=== PATIENT | female | born 1985 | race Two or more races ===

== ENCOUNTER 2016-09-07 11:44 | Emergency (ER) | payer SELFPAY ==
[~2016-09-07] VITALS: Ht 165.1 cm; Wt 63.4 kg
[2016-09-07 14:11] LABS: HEMATOCRIT 34.7 % (36.0-46.0); MCH 26.4 PG (29.0-34.0); MCHC 33.4 G/DL (30.0-36.0); MCV 78.9 FL (83-99); MEAN PLAT.VOLUME 10.3 uM^3 (9.5-12.4); PLATELET COUNT 242 K/uL (156-360); RBC DIS.WIDTH-CV 14.8 % (11.8-14.6); RBC DIS.WIDTH-SD 40.8 % (39-53); WHITE BLOOD COUNT 9.8 K/uL (4.1-10.2)
[2016-09-07 14:26] LABS: CHLORIDE 104 mEq/L (99-109); POTASSIUM 3.7 mEq/L (3.7-5.4); SODIUM 139 mEq/L (136-147)
[2016-09-07 14:27] LABS: GLUCOSE 82 mg/dL (70-99)
[2016-09-07 14:29] LABS: ANION GAP 9 MEQ/L (2-14)
[2016-09-07 14:31] LABS: GFR ESTIMATE (CALCULATED) > 59 mL/min/
[2016-09-07 14:32] LABS: UREA NITROGEN (BUN) 11 mg/dL (9-23)
[2016-09-07] MEDS ORDERED: FIORICET,ESG1 TABLET PO (14:56)
[2016-09-07 15:33] VITALS: BP 135/91
== END 2016-09-07 15:33 | disposition home or self-care (01) ==
LOC: EME 11:44
PROVIDERS: Nurse Practitioner Family
DX: R59.1 Generalized enlarged lymph nodes (principal); R51 Headache; Z85.41 Personal history of malignant neoplasm of cervix uteri; F17.200 Nicotine dependence, unspecified, uncomplicated
CPT/HCPCS: 70450; 80048; 81003; 85027; 99281; 99284

== ENCOUNTER 2016-12-05 16:00 | Emergency (ER) | payer OTHER ==
[~2016-12-05] VITALS: Ht 165.1 cm; Wt 65.3 kg
[~2016-12-05 16:00] MED LIST: FIORICET,ESG1 TABLET PO
[2016-12-05] MEDS ORDERED: ATARAX,VISTARIL25 MG PO (16:43)
[2016-12-05] MEDS ORDERED: ZOLOFT25 MG PO (16:43)
[2016-12-05 17:10] VITALS: BP 142/77
== END 2016-12-05 17:11 | disposition home or self-care (01) ==
LOC: EME 16:00
DX: F41.9 Anxiety disorder, unspecified (principal); F32.9 Major depressive disorder, single episode, unspecified; Z87.891 Personal history of nicotine dependence
CPT/HCPCS: 99281; 99283

== ENCOUNTER 2016-12-31 14:53 | Emergency (ER) | payer OTHER ==
[~2016-12-31] VITALS: Ht 165.1 cm; Wt 65.5 kg
[~2016-12-31 14:53] MED LIST changes: +ATARAX,VISTARIL25 MG PO; +ZOLOFT25 MG PO
[2016-12-31 14:58] VITALS: BP 125/68
[2016-12-31] MEDS ORDERED: NORCO 5/3251 TABLET PO (15:45)
[2016-12-31] MEDS ORDERED: PEN-VEE K,VEET500 MG PO (15:45)
== END 2016-12-31 15:57 | disposition home or self-care (01) ==
LOC: EME 14:53
DX: K02.9 Dental caries, unspecified (principal); F17.200 Nicotine dependence, unspecified, uncomplicated
CPT/HCPCS: 99281; 99284

== ENCOUNTER 2017-01-03 20:05 | Emergency (ER) | payer OTHER ==
[~2017-01-03] VITALS: Ht 165.1 cm; Wt 65.5 kg
[~2017-01-03 20:05] MED LIST changes: +NORCO 5/3251 TABLET PO; +PEN-VEE K,VEET500 MG PO
[2017-01-03] MEDS ORDERED: AUGMENTIN875 MG PO (22:10)
[2017-01-03] MEDS ORDERED: PERCOCET 5/31 TABLET PO (22:21)
[2017-01-03 22:28] VITALS: BP 125/74
== END 2017-01-03 22:29 | disposition home or self-care (01) ==
LOC: EME 20:05
PROC: 0C95XZZ Drainage of Upper Gingiva, External Approach (ICD-10-PCS; principal; 2017-01-03)
DX: K04.7 Periapical abscess without sinus (principal); R11.2 Nausea with vomiting, unspecified; F17.200 Nicotine dependence, unspecified, uncomplicated
CPT/HCPCS: 99281; 99284; S0020

== ENCOUNTER 2017-01-22 19:54 | Inpatient (IN) | payer OTHER ==
[~2017-01-22] VITALS: Ht 165.1 cm; Wt 68.0 kg
[~2017-01-22 19:54] MED LIST changes: +AUGMENTIN875 MG PO; +PERCOCET 5/31 TABLET PO
[2017-01-22 21:21] LABS: EOSINOPHIL (%) 0.3 % (0-5); EOSINOPHIL COUNT 0.1 K/uL (0-0.3); HEMATOCRIT 33.6 % (36.0-46.0); IMMATURE GRANULOCYTE COUNT 0.2 K/uL; INSTRUMENT ABS NEUTROPHIL CT 15.7 K/uL; LYMPHOCYTE COUNT 1.6 K/uL (1.0-2.8); MCH 26.3 PG (29.0-34.0); MCHC 32.4 G/DL (30.0-36.0); MEAN PLAT.VOLUME 10.3 uM^3 (9.5-12.4); MONOCYTE (%) 7.5 % (3-12); MONOCYTE COUNT 1.4 K/uL (0-0.8); NEUTROPHIL (%) 82.7 % (45-76); NEUTROPHIL COUNT 15.7 K/uL (1.8-6.4); PLATELET COUNT 203 K/uL (156-360); RBC DIS.WIDTH-SD 41.1 % (39-53); RED BLOOD COUNT 4.15 M/uL (3.80-5.20)
[2017-01-22 21:32] LABS: CHLORIDE 102 mEq/L (99-109); POTASSIUM 3.7 mEq/L (3.7-5.4); SODIUM 134 mEq/L (136-147)
[2017-01-22 21:34] LABS: GLUCOSE 101 mg/dL (70-99)
[2017-01-22 21:35] LABS: ANION GAP 7 MEQ/L (2-14)
[2017-01-22 21:38] LABS: GFR ESTIMATE (CALCULATED) 55 mL/min/
[2017-01-22 21:39] LABS: UREA NITROGEN (BUN) 11 mg/dL (9-23)
[2017-01-22 22:45] LABS: ADD MIUA? YES; BILIRUBIN NEGATIVE; BLOOD MODERATE; COLOR YELLOW ((YELLOW)); GLUCOSE (STRIP) NEGATIVE; KETONES NEGATIVE; LEUKOCYTES LARGE; NITRITE NEGATIVE; PROTEIN (STRIP) 30; SPECIFIC GRAVITY 1.006 (1.000-1.030); UROBILINOGEN 0.2 MG/DL (0.2-1.0)
[2017-01-22 23:13] LABS: BACTERIA 1+ /HPF; CASTS NONE SEEN /LPF; CRYSTALS NONE SEEN; EPITHELIAL CELLS 2+ /HPF; MUCUS RARE /LPF; UCUL ADDED? YES; WHITE BLOOD CELLS TNTC /HPF (0-5)
[2017-01-23 04:35] VITALS: BP 116/58
[2017-01-23 07:13] LABS: HEMATOCRIT 35.6 % (36.0-46.0); MCH 26.1 PG (29.0-34.0); MCV 81.5 FL (83-99); MEAN PLAT.VOLUME 10.3 uM^3 (9.5-12.4); PLATELET COUNT 188 K/uL (156-360); RBC DIS.WIDTH-CV 13.8 % (11.8-14.6); RBC DIS.WIDTH-SD 41.1 % (39-53); RED BLOOD COUNT 4.37 M/uL (3.80-5.20); WHITE BLOOD COUNT 19.8 K/uL (4.1-10.2)
[2017-01-23 07:20] VITALS: BP 104/54
[2017-01-23 07:46] LABS: ANION GAP 8 MEQ/L (2-14); CHLORIDE 108 MEQ/L (99-109); GFR ESTIMATE (CALCULATED) > 59 mL/min/; GLUCOSE 106 mg/dL (70-99); POTASSIUM 4.3 MEQ/L (3.7-5.4); SAMPLE HEMOLYSIS CHECK 0; SAMPLE ICTERIC CHECK 0; SAMPLE LIPEMIA CHECK 0; SODIUM 137 MEQ/L (136-147); UREA NITROGEN (BUN) 8 mg/dL (9-23)
[2017-01-23 08:20] LABS: ABS NEUTROPHIL COUNT 18.1; BAND NEUTROPHILS 6.9 % (0-8.0); BASOPHILS 0.9 %; EOSINOPHIL ABS CT 0; INSTRUMENT ABS NEUTROPHIL CT 16.7 K/uL; LYMPHOCYTES 6.9 % (15.0-45.0); METAMYELOCYTES 0.9 %; SEG.NEUTROPHILS 84.4 % (46.0-76.0); SMUDGE CELLS 3.5
[2017-01-23 09:41] LABS: INTERNAL CONTROL VALID? YES; MONOSPOT (MONONUCLEOSIS SEROL) NEGATIVE
[2017-01-23 11:20] VITALS: BP 89/52
[2017-01-23 15:50] VITALS: BP 110/59
[2017-01-23 19:31] VITALS: BP 121/78
[2017-01-23 23:43] VITALS: BP 103/58
[2017-01-24 07:05] VITALS: BP 110/63
[2017-01-24 08:22] LABS: HEMATOCRIT 32.9 % (36.0-46.0); MCH 25.8 PG (29.0-34.0); MCHC 32.5 G/DL (30.0-36.0); MCV 79.5 FL (83-99); MEAN PLAT.VOLUME 9.8 uM^3 (9.5-12.4); PLATELET COUNT 171 K/uL (156-360); RBC DIS.WIDTH-CV 13.8 % (11.8-14.6); RBC DIS.WIDTH-SD 40.5 % (39-53); RED BLOOD COUNT 4.14 M/uL (3.80-5.20); WHITE BLOOD COUNT 16.5 K/uL (4.1-10.2)
[2017-01-24 11:15] VITALS: BP 115/60
[2017-01-24 16:00] VITALS: BP 119/63
[2017-01-24 20:21] VITALS: BP 127/69
[2017-01-24 23:45] VITALS: BP 137/76
[2017-01-25 08:10] VITALS: BP 122/78
[2017-01-25 08:10] LABS: EOSINOPHIL (%) 0.3 % (0-5); IMMATURE GRANULOCYTE (%) 0.3 % (0.0-0.7); INSTRUMENT ABS NEUTROPHIL CT 7.9 K/uL; LYMPHOCYTE COUNT 1.6 K/uL (1.0-2.8); MCH 26.3 PG (29.0-34.0); MCHC 33.5 G/DL (30.0-36.0); MCV 78.5 FL (83-99); MEAN PLAT.VOLUME 11.1 uM^3 (9.5-12.4); MONOCYTE (%) 6.8 % (3-12); MONOCYTE COUNT 0.7 K/uL (0-0.8); NEUTROPHIL (%) 76.9 % (45-76); NEUTROPHIL COUNT 7.9 K/uL (1.8-6.4); PLATELET COUNT 200 K/uL (156-360); RBC DIS.WIDTH-CV 13.5 % (11.8-14.6); RBC DIS.WIDTH-SD 38.9 % (39-53); RED BLOOD COUNT 3.95 M/uL (3.80-5.20); WHITE BLOOD COUNT 10.3 K/uL (4.1-10.2)
[2017-01-25 08:33] LABS: ANION GAP 6 MEQ/L (2-14); CHLORIDE 106 MEQ/L (99-109); GFR ESTIMATE (CALCULATED) > 59 mL/min/; GLUCOSE 96 mg/dL (70-99); MAGNESIUM 1.9 mg/dl (1.3-2.7); POTASSIUM 3.8 MEQ/L (3.7-5.4); SAMPLE HEMOLYSIS CHECK 0; SAMPLE ICTERIC CHECK 0; SAMPLE LIPEMIA CHECK 0; SODIUM 139 MEQ/L (136-147); UREA NITROGEN (BUN) 10 mg/dL (9-23)
[2017-01-25 09:20] VITALS: BP 120/75
[2017-01-25 10:30] LABS: HIV INDEX 0.11; HIV-1/2 AB/AG COMBO Nonreactive
[2017-01-25] MEDS ORDERED: PERCOCET 5/31 TABLET PO (11:21)
[2017-01-25] MEDS ORDERED: BACTRIM,SEPT1 TABLET PO (11:21)
== END 2017-01-25 12:54 | disposition home or self-care (01) | DRG 872 ==
LOC: EME → EDBD 19:54 → EME 19:54 → EDOF 01-23 01:09 → 2EASTP 01-23 02:22
PROVIDERS: Emergency Medicine; Hospitalist; Internal Medicine
DX: A41.51 Sepsis due to Escherichia coli [E. coli] (principal); N10 Acute pyelonephritis; F41.9 Anxiety disorder, unspecified; B96.20 Unspecified Escherichia coli [E. coli] as the cause of diseases classified elsewhere; D50.0 Iron deficiency anemia secondary to blood loss (chronic); F17.210 Nicotine dependence, cigarettes, uncomplicated; K04.7 Periapical abscess without sinus; Z87.442 Personal history of urinary calculi; Z90.710 Acquired absence of both cervix and uterus; Z85.41 Personal history of malignant neoplasm of cervix uteri; Z80.3 Family history of malignant neoplasm of breast
CPT/HCPCS: 74176; 80048; 81003; 83605; 83735; 85025; 85027; 86308; 86703; 87040; 87077; 87086; 87186; 87801; 99281; 99285; J0692; J0696; J1170; J1644; J2270; J2405; J3010; J7030; J7050; S0028

== ENCOUNTER 2017-05-01 16:19 | Emergency (ER) | payer OTHER ==
[~2017-05-01] VITALS: Ht 165.1 cm; Wt 70.4 kg
[~2017-05-01 16:19] MED LIST changes: +BACTRIM,SEPT1 TABLET PO
[2017-05-01] MEDS ORDERED: VALIUM5 MG PO (16:56)
[2017-05-01] MEDS ORDERED: ULTRAM50 MG PO (16:56)
[2017-05-01 17:07] VITALS: BP 140/79
== END 2017-05-01 17:07 | disposition home or self-care (01) ==
LOC: EME 16:19
DX: M54.5 Low back pain (principal); Z85.41 Personal history of malignant neoplasm of cervix uteri; Z90.710 Acquired absence of both cervix and uterus; F17.200 Nicotine dependence, unspecified, uncomplicated
CPT/HCPCS: 99281; 99283

== ENCOUNTER 2017-08-21 08:00 | Emergency (ER) | payer OTHER ==
[~2017-08-21] VITALS: Ht 165.1 cm; Wt 75.5 kg
[~2017-08-21 08:00] MED LIST changes: +ULTRAM50 MG PO; +VALIUM5 MG PO
[2017-08-21] MEDS ORDERED: ZITHROMAX Z-PA250 MG PO (09:50)
[2017-08-21] MEDS ORDERED: PROVENTIL HFA6.7 GM IH (09:50)
[2017-08-21] MEDS ORDERED: TAMIFLU75 MG PO (09:50)
[2017-08-21 10:38] VITALS: BP 112/84
== END 2017-08-21 10:40 | disposition home or self-care (01) ==
LOC: EME 08:00
PROVIDERS: Emergency Medicine
DX: J10.1 Influenza due to other identified influenza virus with other respiratory manifestations (principal); J20.9 Acute bronchitis, unspecified; J45.909 Unspecified asthma, uncomplicated; F41.9 Anxiety disorder, unspecified; Z87.442 Personal history of urinary calculi; Z85.41 Personal history of malignant neoplasm of cervix uteri
CPT/HCPCS: 71046; 87502; 94640; 99281; 99284